=== PATIENT | male | born 2000 ===

== ENCOUNTER → 2024-05-22 | Emergency (ER) | payer SELFPAY ==
[~2024-05-22] VITALS: Ht 170.2 cm; Wt 68.2 kg
[~2024-05-22] MED LIST: EMTR1TAB15 PO; METH-812 PO
[2024-05-22 16:55] LABS: COVID AG,FIA SOURCE NASAL SWAB
[2024-05-22 17:13] LABS: INFLUENZA TYPE A NEGATIVE FOR TYPE A (NEGATIVE); INFLUENZA TYPE B NEGATIVE FOR TYPE B (NEGATIVE); SARS-COV2 (COVID) ANTIGEN,FIA Negative (Negative)
[2024-05-22 18:37] LABS: EOSINOPHILS % (AUTO) 0.2 % (1.0-6.0); HEMATOCRIT 43.2 % (41-53); HEMOGLOBIN 14.8 g/dL (13.5-17.5); LYMPHOCYTES # (AUTO) 1.4 K/uL (1.0-4.8); MEAN CORPUSCULAR HEMOGLOBIN 30.7 pg (26.0-34.0); MEAN CORPUSCULAR HGB CONC 34.3 G/dL (31.0-37.0); MEAN CORPUSCULAR VOLUME 90 fL (80-100); MONOCYTES # (AUTO) 0.6 K/uL (0.1-1.0); MONOCYTES % (AUTO) 13.5 % (2.0-9.0); NEUTROPHILS # (AUTO) 2.3 K/uL (1.8-7.7); NEUTROPHILS % (AUTO) 53.3 % (40.0-70.0); PLATELET COUNT (AUTO) 209 K/uL (150-450); RED BLOOD CELL COUNT(AUTO) 4.82 MIL/uL (4.50-5.90); RED CELL DISTRIBUTION WIDTH 13.1 % (11.5-14.5); WHITE BLOOD COUNT (AUTO) 4.4 K/uL (4.5-11.0)
[2024-05-22 18:40] LABS: ANION GAP 9 mmol/L (8-16); CALCIUM, TOTAL 8.3 mg/dL (8.8-10.5); CARBON DIOXIDE 29 mmol/L (22-29); CHLORIDE 100 mmol/L (98-107); CREATININE 0.87 mg/dL (0.60-1.30); GLOMERULAR FILTR. RATE CALC > 60 mL/min (>60); GLUCOSE,RANDOM 104 mg/dL (70-110); LIPASE 31 U/L (16-77); POTASSIUM 4.2 mmol/L (3.5-5.1); SODIUM SERUM 138 mmol/L (136-145); UREA NITROGEN, BLOOD 9 mg/dL (7-18)
[2024-05-22 18:48] LABS: APPEARANCE,URINE CLEAR (CLEAR); BILIRUBIN,URINE NEGATIVE (NEGATIVE); COLOR,URINE LIGHT YELLOW (YELLOW); GLUCOSE, URINE (UA) NEGATIVE (NEGATIVE); KETONES,URINE NEGATIVE (NEGATIVE); LEUKOCYTE ESTERASE ,URINE NEGATIVE (NEGATIVE); NITRATE,URINE NEGATIVE (NEGATIVE); OCCULT BLOOD,URINE NEGATIVE (NEGATIVE); PROTEIN,URINE 30-70 mg/dL (NEGATIVE); SPECIFIC GRAVITIY, URINE 1.025 (1.003-1.030); UROBILINOGEN,URINE <=1.0 mg/dL (<=1.0)
[2024-05-22] MEDS: LIDOCAINE 5% TRANSDERMAL PATCH TD ONE (20:42)
[2024-05-22] MEDS: BENZONATATE 100 MG CAPSULE PO ONE (20:42)
[2024-05-22] MEDS: ACETAMINOPHEN 325 MG TABLET PO ONE (20:42)
[2024-05-22] MEDS: DIAZEPAM 5 MG TABLET PO ONE (20:42)
[2024-05-22] MEDS: KETOROLAC TROMETHAMINE 30 MG/ML VIAL IVP ONE (20:46)
[2024-05-22 21:53] VITALS: BP 129/68; PULSE 86; RESP 18; TEMP 98.9; O2SAT 100
== END | disposition still patient (30) ==
LOC: EMS 16:25
DX: J06.9 Acute upper respiratory infection, unspecified (principal); B97.89 Other viral agents as the cause of diseases classified elsewhere; M54.31 Sciatica, right side; Z79.624 Long term (current) use of inhibitors of nucleotide synthesis; Z20.822 Contact with and (suspected) exposure to COVID-19
CPT/HCPCS: 99284; 71046; 87426; 80048; 81003; 83690; 85025; 87804; 36415; J1885